=== PATIENT | male | born 2000 ===

== ENCOUNTER 2021-12-13 07:32 | Day surgery (SDC) | payer OTHER ==
[~2021-12-13] VITALS: Ht 172.7 cm; Wt 81.1 kg
--- NOTE | 2021-12-13 11:41 | NUR ---
PATIENT ALERT, ANSWERING QUESTIONS APPROPRIATLY. DENIES NAUSEA. C/O 3/10 ACHING PAIN TO RUQ AND MIDDLE ABDOMEN.
--- NOTE | 2021-12-13 12:32 | NUR ---
MEDICATED FOR PAIN AND FOR C/O OF MILD NAUSEA AFTER DRINKING SODA AND EATING JELLO.
--- NOTE | 2021-12-13 12:35 | NUR ---
REPORT GIVEN TO SIENA MASSEY RN.
--- NOTE | 2021-12-13 12:44 | NUR ---
TOOK OVER PATIENT CARE AFTER REPORT WAS RECEIVED.
== END 2021-12-13 13:23 | disposition home or self-care (01) ==
LOC: ORSCMMR 07:32 → ORD 08:30 → ORSCMMR 13:23
PROVIDERS: Surgery
PROC: 0FT44ZZ Resection of Gallbladder, Percutaneous Endoscopic Approach (ICD-10-PCS; principal; 2021-12-13 08:30)
PROC: BF031ZZ Plain Radiography of Gallbladder and Bile Ducts using Low Osmolar Contrast (ICD-10-PCS; principal; 2021-12-13 08:30)
DX: K80.10 Calculus of gallbladder with chronic cholecystitis without obstruction (principal)
CPT/HCPCS: 74300; 88304; A9270; C1729; J0690; J1100; J1885; J2250; J2405; J2704; J2795; J3010; J7120